=== PATIENT | female | born 1940 | race Caucasian/White ===

== ENCOUNTER 2018-04-03 05:15 | Day surgery (SDC) | payer OTHER ==
[~2018-04-03 05:15] MED LIST: ATENOLOL25 MG PO; SINGULAIR10 MG PO; ZANTAC150 M3 PO; ZYRTEC10 M2 PO
[2018-04-03] MEDS ORDERED: ULTRACET PO (09:44)
[2018-04-03] MEDS ORDERED: LEVAQUIN500 MG PO (10:02)
== END 2018-04-03 12:40 | disposition home or self-care (01) ==
LOC: CIR.AMB 05:15
DX: N39.46 Mixed incontinence (principal); N32.81 Overactive bladder
CPT/HCPCS: 64590; 64581; C1767; C1778

== ENCOUNTER 2019-01-31 12:10 | Inpatient (IN) | payer OTHER ==
[~2019-01-31] VITALS: Ht 154.9 cm; Wt 67.6 kg
[~2019-01-31 12:10] MED LIST changes: +LEVAQUIN500 MG PO; +ULTRACET PO
[2019-01-31] MEDS ORDERED: PREVACID30 MG (12:57)
[2019-01-31] MEDS ORDERED: METFORMIN HCL500 M2 (12:58)
--- NOTE | 2019-01-31 12:58 | NUR ---
SE RECIBE PTE AMBULANDO CON BASTON ALERTA Y ORIENTADA X3 QUIEN REFIERE DOCOTR AMOS ED LEON POR DOLOR ABDOMINAL PROFUNDO EN CUADRANTE INFERIOR ABIMAEL.
--- NOTE | 2019-01-31 13:49 | NUR ---
BAJO MEDIDAS ASEPTICAS AL PACIENTE SE LE CANALIZA Y SE LE GWEN MUESTRAS DE [place]. [place] ORDEN MEDICA SE LE MIHAI SALINE LOCK Y SE LE ADMINISTRA MEDICAMENTOS IV CON IVF. PACIENTE SE MANTIENE BAJO OBSERVACION PARA CAMBIOS SIGNIFICATIVOS.
== END 2019-02-08 16:11 | disposition home or self-care (01) | DRG 389 ==
LOC: ER 12:10 → MEDJ 20:35 → SEC-K 20:35 → MEDJ 21:43
PROVIDERS: ADMIT Internal Medicine
PROC: BW21ZZZ Computerized Tomography (CT Scan) of Abdomen and Pelvis (ICD-10-PCS; principal; 2019-01-31)
DX: K56.690 Other partial intestinal obstruction (principal); K57.32 Diverticulitis of large intestine without perforation or abscess without bleeding; K52.89 Other specified noninfective gastroenteritis and colitis; E11.9 Type 2 diabetes mellitus without complications; I10 Essential (primary) hypertension; K21.9 Gastro-esophageal reflux disease without esophagitis; J45.998 Other asthma; E78.00 Pure hypercholesterolemia, unspecified; Z88.0 Allergy status to penicillin; Z16.23 Resistance to quinolones and fluoroquinolones